=== PATIENT | female | born 1965 | race Caucasian/White ===

== ENCOUNTER 2019-12-03 11:34 | Outpatient (CLI) | payer BC ==
--- NOTE | 2019-12-03 12:10 | RAD ---
LUMBAR SPINE 4 VIEWS INCLUDING FLEXION AND EXTENSION LATERAL VIEWS: Date: 12/03/2019 HISTORY: Spondylolysis. FINDINGS: Postoperative laminectomy and pedicle screw placement changes at L4-L5 with intradiscal prosthesis. M oderate retrolisthesis of L2 on L3 with disc space narrowing and osteophytosis. No evidence for abnor mal translation between flexion and extension. IMPRESSION: Retrolisthesis L2 on L3 with disc space narrowing and disc osteophytosis. Postoperative changes at L4 -L5. No abnormal translation between flexion and extension. POS: [facility]
== END 2019-12-03 11:35 | disposition home or self-care (01) ==
LOC: RAD 11:34
PROVIDERS: ATTEND Specialist
DX: M43.16 Spondylolisthesis, lumbar region (principal); M51.36 Other intervertebral disc degeneration, lumbar region; M25.78 Osteophyte, vertebrae; Z98.890 Other specified postprocedural states
CPT/HCPCS: 72120

== ENCOUNTER 2021-03-24 15:14 | Outpatient (CLI) | payer BC | END 2021-03-24 15:15 | disposition home or self-care (01) | LOC: BICMAMMO 15:14 | PROVIDERS: ATTEND Obstetrics & Gynecology | DX: Z12.31 Encounter for screening mammogram for malignant neoplasm of breast (principal) | CPT/HCPCS: 77063; 77067 ==

== ENCOUNTER 2022-03-26 10:45 | Outpatient (CLI) | payer BC | END 2022-03-26 10:46 | disposition home or self-care (01) | LOC: BICMAMMO 10:45 | PROVIDERS: ATTEND Family Medicine | DX: Z12.31 Encounter for screening mammogram for malignant neoplasm of breast (principal) | CPT/HCPCS: 77063; 77067 ==

== ENCOUNTER 2022-05-26 13:29 | Outpatient (CLI) | payer BC | END 2022-05-26 13:30 | disposition home or self-care (01) | LOC: BICRAD 13:29 | PROVIDERS: ATTEND Family Medicine | DX: M25.551 Pain in right hip (principal) ==

== ENCOUNTER 2023-05-24 10:47 | Outpatient (CLI) | payer OTHER | END 2023-05-24 10:48 | disposition home or self-care (01) | LOC: BICMAMMO 10:47 | PROVIDERS: ATTEND Family Medicine | DX: Z12.31 Encounter for screening mammogram for malignant neoplasm of breast (principal) | CPT/HCPCS: 77063; 77067 ==

== ENCOUNTER 2024-05-25 10:51 | Outpatient (CLI) | payer OTHER | END 2024-05-25 10:52 | disposition home or self-care (01) | LOC: BICMAMMO 10:51 | PROVIDERS: ATTEND Family Medicine | DX: Z12.31 Encounter for screening mammogram for malignant neoplasm of breast (principal) | CPT/HCPCS: 77063; 77067 ==